=== PATIENT | female | born 1990 | race Caucasian/White ===

== ENCOUNTER → 2017-02-18 | Outpatient (CLI) | payer OTHER, MEDICAID ==
[~2017-02-18] MED LIST: METO10TA PO; PRENCAP6 PO; ZOFR4TAB3 SL
== END ==
LOC: HPND 10:28
PROVIDERS: ATTEND Obstetrics & Gynecology
DX: O30.032 Twin pregnancy, monochorionic/diamniotic, second trimester (principal)
CPT/HCPCS: 76811; 76812; 76817

== ENCOUNTER → 2017-03-04 | Outpatient (CLI) | payer OTHER, MEDICAID | LOC: HPND 13:26 | PROVIDERS: ATTEND Obstetrics & Gynecology | DX: O30.042 Twin pregnancy, dichorionic/diamniotic, second trimester (principal) | CPT/HCPCS: 76815; 76817 ==

== ENCOUNTER → 2017-03-20 | Outpatient (CLI) | payer OTHER, MEDICAID | LOC: HPND 09:38 | DX: O30.042 Twin pregnancy, dichorionic/diamniotic, second trimester (principal) | CPT/HCPCS: 76816; 76816-59 ==